=== PATIENT | female | born 1970 | race Hispanic/Latino ===

== ENCOUNTER 2020-05-29 08:47 | Day surgery (SDC) | payer OTHER ==
[2020-05-24 09:20] LABS: BASOPHILS % (AUTO) 0.3 % (0.0-5.0); EOSINOPHILS % (AUTO) 1.3 % (0.0-8.0); HEMATOCRIT 45.9 % (36-48); LYMPHOCYTES % (AUTO) 25.4 % (21.0-51.0); MEAN CORPUSCULAR HEMOGLOBIN 25.7 pg (27.0-33.0); MEAN CORPUSCULAR HGB CONC 31.4 g/dL (32.0-36.0); MONOCYTES % (AUTO) 4.8 % (3.0-13.0); NEUTROPHILS % (AUTO) 67.9 % (40.0-77.0); PLATELET COUNT (AUTO) 369 K/uL (130-400); RED CELL DISTRIBUTION WIDTH 13.1 % (11.0-15.5); WHITE BLOOD COUNT (AUTO) 11.8 K/uL (4.8-10.8)
[2020-05-24 09:33] LABS: CREATININE 0.9 mg/dL (0.5-1.5); POTASSIUM 3.8 mmol/L (3.5-5.1)
[2020-05-26 14:39] VITALS: BP 119/95
[~2020-05-29] VITALS: Ht 167.6 cm; Wt 74.4 kg
[2020-05-29] VITALS (17 sets, daily range): BP systolic 109–152; BP diastolic 61–78
[~2020-05-29 08:47] MED LIST: CEFAZOLIN SODIUM 1 GM VIAL IVP SCH; IBUP-2077 PO
[2020-05-29] MEDS ORDERED: LACTATED RINGERS 1000ML 1,000 ML IV ONE (08:57)
[2020-05-29] MEDS ORDERED: SUCCINYLCHOLINE CHLORIDE 20 MG/ML 10 ML VIAL ONE (11:00)
[2020-05-29] MEDS ORDERED: ROCURONIUM 10MG/1ML SYR 10 MG/ML ML ONE (11:00)
[2020-05-29] MEDS ORDERED: LIDOCAINE PF 2% 5ML ABBOJECT ONE (11:00)
[2020-05-29] MEDS ORDERED: PROPOFOL 10 MG/ML 20ML VIAL IV ONE (11:00)
[2020-05-29] MEDS ORDERED: FENTANYL CITRATE PF 50 MCG/1 ML 2ML VIAL ONE (11:00)
[2020-05-29] MEDS ORDERED: ROPIVACAINE 0.5% 5MG/ML 30ML IJ ONE (11:04)
[2020-05-29] MEDS ORDERED: EPINEPHRINE 1 MG/ML 30ML VIAL IJ ONE (11:32)
[2020-05-29] MEDS ORDERED: GLYCOPYRROLATE 1 MG/5 ML SYRINGE ONE (12:17)
[2020-05-29] MEDS ORDERED: PHENYLEPHRINE HCL 10 MG/ML 1ML VIAL IV ONE (12:25)
[2020-05-29] MEDS ORDERED: SODIUM CHLORIDE 0.9% 10 ML VIAL ONE (12:25)
[2020-05-29] MEDS ORDERED: EPHEDRINE SULFATE 50 MG/ML AMPULE ONE (14:26)
[2020-05-29] MEDS ORDERED: NEOSTIGMINE 5MG/5ML SYR IV ONE (14:45)
[2020-05-29] MEDS ORDERED: KETOROLAC TROMETHAMINE 30MG/ML ONE (14:50)
[2020-05-29] MEDS ORDERED: ONDANSETRON HCL 4 MG/2 ML VIAL ONE (14:50)
[2020-05-29] MEDS ORDERED: CEPH500B PO (15:38)
[2020-05-29] MEDS ORDERED: HYDR-4457 PO (15:38)
[2020-05-29] MEDS ORDERED: INSULIN HUMULIN R 100 UNIT/ML 3ML SQ ONE (16:45)
== END 2020-05-29 16:55 ==
LOC: DAH 08:47
PROVIDERS: ATTEND Orthopaedic Surgery
DX: S46.011A Strain of muscle(s) and tendon(s) of the rotator cuff of right shoulder, initial encounter (principal); S43.431A Superior glenoid labrum lesion of right shoulder, initial encounter; Z20.828 Contact with and (suspected) exposure to other viral communicable diseases; W18.40XA Slipping, tripping and stumbling without falling, unspecified, initial encounter; Y93.89 Activity, other specified; Y92.091 Bathroom in other non-institutional residence as the place of occurrence of the external cause; Y99.8 Other external cause status; Z90.49 Acquired absence of other specified parts of digestive tract; M75.21 Bicipital tendinitis, right shoulder
CPT/HCPCS: 29823; 36415; 64415; 76942; 80048; 82948 ×2; 85025; A4215; A4221; A4222; A4223; A4565; A4600; A4649 ×5; A4663; A4930 ×2; A5120; A6204; A6207; C1713; C9803; G0168; J0171; J0330; J0690; J1885; J2001; J2370; J2405; J2704; J2710; J2795; J3010; J3490 ×2; J7120 ×2; U0003